=== PATIENT | female | born 1995 | race Caucasian/White ===

== ENCOUNTER 2016-08-03 23:51 | Emergency (ER) | payer SELFPAY ==
--- NOTE | 2016-08-13 18:41 | ER ---
ADMIT: 08/03/2016 RM/LOC: ER [facility] MR#: [id number] [facility] [address] [place], [place] [id number] ALICIA SHARPE [address] [address] Emergency Room Report SEX: F AGE: 20 : 1995 DATE: 08/03/2016 HISTORY OF PRESENT ILLNESS: The patient is a 20-year-old female with no past medical history, updated vaccination, came to the ER with chief complaint of right volar index finger, distal phalanx, swelling and redness for 1 day. The patient states a week ago, she had a small cut in that area with a kitchen knife during cooking, per patient the incision was repaired by itself, but today she noticed it is getting swollen and painful. The patient denies any fever at home. The patient denies any discharge of the pus. Pain increases with palpation of the area. PHYSICAL EXAMINATION: GENERAL: The patient was afebrile, in mild to moderate pain while palpating the area. The patient could flex and extend the fingers, but the flexion of the index finger, deep tendons is moderately painful because of the swelling. There is erythematous swelling of the distal volar digit of the right index finger. There is questionable 3 mm x 3 mm fluctuation area on the volar part on the finger pad. Capillary fillings are normal. After prepping and draping the area with Betadine and digital block with lidocaine 2% without epinephrine, 3 mL, with lateral small 4 mm incision, the felon was I and D's. Incision drained successfully. The wound was dressed. The patient received Percocet for pain control in the ER, the patient received a dose of Keflex in the ER. The patient was discharged to home with wound care advice and also with a prescription for Keflex and Percocet and follow up with the primary doctor. Robby Kelley MD/ camille JOB #: [id number] CC: Aldo Muhammad MD, Attending Physician Jackelyn Jamil MD, Family Physician
== END 2016-08-04 01:30 | disposition home or self-care (01) ==
LOC: ER 23:51
PROC: 0H9FXZZ Drainage of Right Hand Skin, External Approach (ICD-10-PCS; principal; 2016-08-03)
DX: L03.011 Cellulitis of right finger (principal)